=== PATIENT | male | born 1990 | race Caucasian/White ===

== ENCOUNTER 2020-12-09 13:10 | Emergency (ER) | payer OTHER ==
[2020-12-09 15:09] LABS: BASOPHIL 0.4 % (0-2); EOSINOPHIL 2.6 % (0-5); HCT 42.5 % (42.0-52.0); HGB 14.3 g/dl (13.2-18.0); LYMPHOCYTE 23.7 % (15-48); MCH 29.9 pg (25.0-31.0); MCHC 33.6 g/dL (32.0-36.0); MCV 88.7 fL (78.0-100.0); MONOCYTE 10.7 % (0-12); MPV 9.1 fL (6.0-9.5); NEUTROPHIL 62.4 % (41-80); NRBC 0; PLT 221 K/uL (150-400); RBC 4.79 M/uL (4.70-6.00); RDW 12.6 % (11.5-14.0); WBC 10.1 K/uL (4.0-10.5)
[2020-12-09 15:18] LABS: ALBUMIN 3.5 g/dL (3.4-5.0); BILIRUBIN - TOTAL 0.2 mg/dL (0.2-1.0); BUN/CREAT RATIO (CALC) 16.1 RATIO; CREATININE 0.93 mg/dL (0.67-1.17); GLOBULIN (CALCULATION) 3.3 g/dL; POTASSIUM 3.7 mmol/L (3.5-5.1); TOTAL PROTEIN 6.8 g/dL (6.4-8.2)
[2020-12-09] MEDS ORDERED: BACTRIM DS TAB1 EACH PO (16:37)
== END 2020-12-09 16:55 | disposition home or self-care (01) ==
LOC: FER 13:10
PROVIDERS: Emergency Medicine
DX: L02.511 Cutaneous abscess of right hand (principal); L03.011 Cellulitis of right finger
CPT/HCPCS: 36415; 73200; 80053; 85025; 87070; 87077; 87186; 87205; J3370; J7050